=== PATIENT | male | born 1960 | race Caucasian/White ===

== ENCOUNTER 2018-02-11 09:00 | Outpatient (RCR) | payer OTHER ==
[2017-11-19 13:22] VITALS: BP 106/66; PULSE 77; TEMP 98.2
[2017-12-03 09:16] VITALS: BP 113/60; PULSE 64; TEMP 98
[2017-12-17 09:05] VITALS: BP 119/76; PULSE 64; TEMP 97.8
[2017-12-31 09:08] VITALS: BP 121/67; PULSE 62; TEMP 98.1
[2018-01-14 09:31] VITALS: BP 102/72; PULSE 75; TEMP 98.3
[2018-01-28 09:09] VITALS: BP 105/66; PULSE 62; TEMP 98.3
[~2018-02-11] VITALS: Ht 177.8 cm; Wt 121.2 kg
[~2018-02-11 09:00] MED LIST: ASPIRIN 81M81 MG/TA2 PO; COENZYME Q-10100 M1 PO; CYMBALTA 20MG20 MG PO; FLOMAX 0.40.4 MG/CAP PO; FLONASEALLERGY NS; FLOVENT 220MCG7.9 GM IH; KLONOPIN WAFER0.5 MG PO; LIPITOR20 MG PO; NEURONTIN300 MG/CAP PO; PRILOSEC 20MG20 MG PO; PRINIVIL40 MG PO; PROAIR HFA0.09 MG/AC IH; PROSCAR 5MG5 MG PO; SINGULAIR 110 MG/TAB PO; THEO-24 30300 MG/CAP PO; TOPROL XL100 MG PO; VITAMIN B COMPL1 SGL PO; VITAMIN D31000 I1 PO; VITAMINC1000TA PO; ZYRTEC ALLERGY10 MG PO
[2018-02-11 09:13] VITALS: BP 125/69; PULSE 58; TEMP 97.7
== END 2018-02-17 | disposition home or self-care (01) ==
LOC: EUO
DX: J45.909 Unspecified asthma, uncomplicated (principal); R76.8 Other specified abnormal immunological findings in serum; Z79.899 Other long term (current) drug therapy
CPT/HCPCS: J2357

== ENCOUNTER 2018-05-20 10:00 | Outpatient (RCR) | payer OTHER ==
[2018-02-25 09:00] VITALS: BP 105/68; PULSE 60; TEMP 98.3
[2018-03-11 10:26] VITALS: BP 116/69; PULSE 70; TEMP 97.9
[2018-03-25 11:07] VITALS: BP 111/68; PULSE 72; TEMP 98.1
[2018-04-08 10:15] VITALS: BP 113/62; PULSE 76; TEMP 97.9
[2018-04-22 10:36] VITALS: BP 119/66; PULSE 63; TEMP 98.4
[2018-05-06 10:09] VITALS: BP 113/71; PULSE 67; TEMP 98
[~2018-05-20] VITALS: Ht 177.8 cm; Wt 125.0 kg
[~2018-05-20 10:00] MED LIST changes: +ASPI325T6 PO; +BIAXIN 500MG T500 MG PO; +IPRATROPIUM BROM3 M1 IH; +RT ADVAIR 528 DISKUS IH; +THE MEDICINE S200 M2 PO; +XOLAIR150 MG SQ
[2018-05-20 10:40] VITALS: BP 111/79; PULSE 68; TEMP 98
== END 2018-05-26 | disposition home or self-care (01) ==
LOC: EUO
DX: J45.909 Unspecified asthma, uncomplicated (principal); R76.8 Other specified abnormal immunological findings in serum
CPT/HCPCS: J2357

== ENCOUNTER 2018-08-14 10:00 | Outpatient (RCR) | payer OTHER ==
[2018-06-06 11:16] VITALS: BP 132/67; PULSE 76; TEMP 98.7
[2018-06-20 10:42] VITALS: BP 130/66; PULSE 64; TEMP 98.2
[2018-07-04 10:12] VITALS: BP 110/72; PULSE 71; TEMP 98.4
[2018-07-18 10:01] VITALS: BP 114/57; PULSE 76; TEMP 98.4
[2018-08-01 10:23] VITALS: BP 126/74; PULSE 71; TEMP 98.2
[~2018-08-14] VITALS: Ht 177.8 cm; Wt 129.0 kg
[2018-08-14 11:42] VITALS: BP 130/69; PULSE 93; TEMP 97.6
== END 2018-08-14 13:48 | disposition home or self-care (01) ==
LOC: EUO 10:00
DX: J45.909 Unspecified asthma, uncomplicated (principal); R76.8 Other specified abnormal immunological findings in serum
CPT/HCPCS: J2357

== ENCOUNTER → 2021-09-05 | Outpatient (CLI) | payer OTHER | LOC: MHCPAIN 13:47 | DX: M47.817 Spondylosis without myelopathy or radiculopathy, lumbosacral region (principal); M53.3 Sacrococcygeal disorders, not elsewhere classified; G57.11 Meralgia paresthetica, right lower limb | CPT/HCPCS: G0463 ==